=== PATIENT | female | born 1995 | race Caucasian/White ===

== ENCOUNTER 2020-10-12 06:20 | Inpatient (IN) | payer OTHER ==
[2020-10-12] MEDS ORDERED: ELECTROLYTE-148 SOLN 500 ML IV ONE (06:40)
[2020-10-12] MEDS ORDERED: CITRIC ACID/SODIUM CITRATE 30 ML UNIT-DOSE CUP PO ONE (06:45)
[2020-10-12 07:05] VITALS: BMI 26.5
[2020-10-12] MEDS ORDERED: ELECTROLYTE-148 SOLN 1,000 ML IV SCH (07:10)
[2020-10-12] MEDS ORDERED: morphine SULFATE/PF 0.5 MG/ML (2cc Syringe - QUVA) ONE (08:03)
[2020-10-12] MEDS ORDERED: OXYTOCIN 20 UNITS in 0.9% NS 20 UNIT/1,000 ML INFUS.BAG IV SCH (09:15)
[2020-10-12] MEDS ORDERED: METHYLERGONOVINE MALEATE 0.2 MG/1 ML AMP IM PRN (09:15)
[2020-10-12] MEDS ORDERED: morphine SULFATE/PF 0.5 MG/ML (2cc Syringe - QUVA) EP ONE (09:29)
[2020-10-12] MEDS ORDERED: ONDANSETRON 4 MG/2 ML VIAL IVPUSH PRN (09:29)
[2020-10-12 09:34] LABS: CORD BASE EXCESS -1.5 mmol/L (0-2); CORD HCO3 25.2 mmHg (20-29); CORD pH 7.321 (7.14-7.44)
[2020-10-12 09:38] LABS: CORD BASE EXCESS -1.2 mmol/L (0-2); CORD HCO3 27.5 mmHg (20-29); CORD PCO2 63.3 mmHg (30-78); CORD pH 7.256 (7.14-7.44)
[2020-10-12] MEDS ORDERED: OXYTOCIN 20 UNITS in 0.9% NS 20 UNIT/1,000 ML INFUS.BAG IV ONE (10:10)
[2020-10-12] MEDS: IBUPROFEN 800 MG/8 ML IJ IVPB PRN ×2 (14:00→23:45)
[2020-10-12] MEDS: CEFAZOLIN 1 GM/D5W 1 GM/50 ML BAG IVPB SCH (15:24)
[2020-10-13] MEDS: CEFAZOLIN 1 GM/D5W 1 GM/50 ML BAG IVPB SCH ×2 (00:01→08:04)
[2020-10-13] MEDS: ACETAMINOPHEN 325 MG TABLET (FP) PO PRN ×2 (04:12→08:05)
[2020-10-13] MEDS: oxyCODONE HCL 5 MG TABLET PO PRN ×4 (04:15→19:35)
[2020-10-13] MEDS: SENNOSIDES/DOCUSATE COMBO (SENNA PLUS) TABLET (UD) PO PRN ×2 (04:16→19:36)
[2020-10-13 07:57] LABS: BASO % 0.2 % (0-2.0); EOS % 0.2 % (0-4.5); HEMATOCRIT 30.2 % (32.4-45.2); HEMOGLOBIN 9.9 GM/dL (10.7-15.3); LYMPH % 15.4 % (8-40); MCH 29.9 pg (25.7-33.7); MCHC 32.7 g/dl (32.0-36.0); MEAN CELL VOLUME 91.2 fl (80-96); MEAN PLT VOLUME 8.9 fl (7.5-11.1); MONO % 8.4 % (3.8-10.2); NEUT % 75.8 % (42.8-82.8); PLATELET COUNT 212 K/MM3 (134-434); RBC 3.31 M/mm3 (3.60-5.2); WHITE BLOOD COUNT 14.3 K/mm3 (4.0-10.0)
[2020-10-13] MEDS: IBUPROFEN 600 MG TABLET (FP) PO PRN ×3 (08:05→19:36)
[2020-10-13] MEDS ORDERED: BISACODYL 10 MG SUPP.RECT RC PRN (09:15)
[2020-10-13] MEDS: ENOXAPARIN NA (PORCINE) 40 MG/0.4 ML DISP.SYRIN SQ SCH (10:47)
[2020-10-13] MEDS: PRENATAL VITAMINS W/ FOLIC ACID TABLET (FP) PO SCH (10:47)
[2020-10-13] MEDS: SIMETHICONE 80 MG TAB.CHEW (FP) PO PRN ×2 (15:19→19:36)
[2020-10-13] MEDS: FERROUS SO4 325 MG TABLET (FP) PO SCH (21:16)
[2020-10-14] MEDS: SIMETHICONE 80 MG TAB.CHEW (FP) PO PRN ×3 (00:42→22:04)
[2020-10-14] MEDS: IBUPROFEN 600 MG TABLET (FP) PO PRN ×4 (00:42→18:45)
[2020-10-14] MEDS: oxyCODONE HCL 5 MG TABLET PO PRN ×4 (00:42→18:45)
[2020-10-14] MEDS: PRENATAL VITAMINS W/ FOLIC ACID TABLET (FP) PO SCH (09:02)
[2020-10-14] MEDS: FERROUS SO4 325 MG TABLET (FP) PO SCH ×2 (09:02→22:04)
[2020-10-14] MEDS: ENOXAPARIN NA (PORCINE) 40 MG/0.4 ML DISP.SYRIN SQ SCH (09:05)
[2020-10-14] MEDS: SENNOSIDES/DOCUSATE COMBO (SENNA PLUS) TABLET (UD) PO PRN (22:04)
[2020-10-15] MEDS: IBUPROFEN 600 MG TABLET (FP) PO PRN ×2 (04:21→08:38)
[2020-10-15] MEDS: oxyCODONE HCL 5 MG TABLET PO PRN ×2 (04:22→08:37)
[2020-10-15] MEDS: SIMETHICONE 80 MG TAB.CHEW (FP) PO PRN (04:22)
[2020-10-15] MEDS: FERROUS SO4 325 MG TABLET (FP) PO SCH ×2 (08:38→09:09)
[2020-10-15] MEDS: PRENATAL VITAMINS W/ FOLIC ACID TABLET (FP) PO SCH ×2 (08:38→09:09)
[2020-10-15 08:41] LABS: BASO % 0.8 % (0-2.0); EOS % 2.9 % (0-4.5); HEMATOCRIT 33.5 % (32.4-45.2); HEMOGLOBIN 11.5 GM/dL (10.7-15.3); LYMPH % 23.9 % (8-40); MCH 31.3 pg (25.7-33.7); MCHC 34.4 g/dl (32.0-36.0); MEAN PLT VOLUME 8.1 fl (7.5-11.1); MONO % 6.5 % (3.8-10.2); NEUT % 65.9 % (42.8-82.8); PLATELET COUNT 277 K/MM3 (134-434); RBC 3.67 M/mm3 (3.60-5.2); RDW 13.9 % (11.6-15.6); WHITE BLOOD COUNT 9.5 K/mm3 (4.0-10.0)
[2020-10-15 09:08] VITALS: BP 129/60; PULSE 79; TEMP 98.7
[2020-10-15] MEDS: ENOXAPARIN NA (PORCINE) 40 MG/0.4 ML DISP.SYRIN SQ SCH (09:09)
== END 2020-10-15 11:55 | disposition home or self-care (01) | DRG 540 ==
LOC: JLDR 06:20 → J3W 11:00
PROVIDERS: ADMIT Obstetrics & Gynecology; ATTEND Obstetrics & Gynecology
PROC: 10D00Z1 Extraction of Products of Conception, Low, Open Approach (ICD-10-PCS; principal; 2020-10-12)
DX: O34.211 Maternal care for low transverse scar from previous cesarean delivery (principal); O99.824 Streptococcus B carrier state complicating childbirth; O99.02 Anemia complicating childbirth; D64.89 Other specified anemias; Z3A.39 39 weeks gestation of pregnancy; Z37.0 Single live birth; Z86.59 Personal history of other mental and behavioral disorders; Z86.19 Personal history of other infectious and parasitic diseases; Z87.09 Personal history of other diseases of the respiratory system
CPT/HCPCS: 36415; 36600; 82803; 85025; 88307-TC

== ENCOUNTER 2021-11-13 19:23 | Emergency (ER) | payer OTHER ==
[2021-11-13 19:33] VITALS: BP 104/72; PULSE 90; TEMP 98.1; BMI 18.3
[2021-11-13 20:59] LABS: BASO % 0.4 % (0-2.0); EOS % 2.2 % (0-4.5); HEMATOCRIT 36.6 % (32.4-45.2); HEMOGLOBIN 12.7 GM/dL (10.7-15.3); LYMPH % 21.7 % (8-40); MCH 31.2 pg (25.7-33.7); MCHC 34.6 g/dl (32.0-36.0); MEAN CELL VOLUME 90.2 fl (80-96); MEAN PLT VOLUME 7.8 fl (7.5-11.1); MONO % 4.9 % (3.8-10.2); NEUT % 70.8 % (42.8-82.8); PLATELET COUNT 320 10^3/uL (134-434); RBC 4.06 M/mm3 (3.60-5.2); RDW 12.1 % (11.6-15.6); WHITE BLOOD COUNT 13.9 K/mm3 (4.0-10.0)
[2021-11-13 21:06] LABS: CHLORIDE 104 mmol/L (98-107); SODIUM 136 mmol/L (136-145)
[2021-11-13 21:08] LABS: CALCIUM 9.3 mg/dL (8.5-10.1)
[2021-11-13 21:09] LABS: ALBUMIN 3.5 g/dl (3.4-5.0); ANION GAP 10 MMOL/L (8-16); BLOOD UREA NITROGEN 12.8 mg/dL (7-18); CO2 22 mmol/L (21-32); GLUCOSE,RANDOM 101 mg/dL (74-106)
[2021-11-13 21:10] LABS: EPI CELLS >36 /uL (0-25.1); HYALINE CASTS 12 /uL (0-3.1); URINE APPEARANCE CLEAR; URINE BACTERIA >9,000 /uL (0-1359); URINE BILIRUBIN NEGATIVE (NEGATIVE); URINE COLOR YELLOW; URINE GLUCOSE (UA) NEGATIVE (NEGATIVE); URINE KETONE NEGATIVE (NEGATIVE); URINE LEUK ESTERASE NEGATIVE (NEGATIVE); URINE NITRITE POSITIVE (NEGATIVE); URINE PROTEIN NEGATIVE (NEGATIVE); URINE RBC 3 /uL (0-23.9); URINE UROBILINOGEN 0.2 mg/dL (0.2-1.0); URINE WBC 44 /uL (0-25.8)
[2021-11-13 21:12] LABS: CREATININE 0.6 mg/dL (0.55-1.3); SGOT/AST 10 U/L (15-37); SGPT/ALT 19 U/L (13-61)
[2021-11-13 21:13] LABS: BILIRUBIN,TOTAL 0.1 mg/dL (0.2-1); TOT PROT 7.1 g/dl (6.4-8.2)
[2021-11-13 21:15] LABS: ALK PHOS 66 U/L (45-117)
[2021-11-13] MEDS ORDERED: CEPHALEXIN MONOHYDRATE 500 MG CAPSULE (UD) PO ONE (22:39)
[2021-11-13] MEDS ORDERED: CEPHALEXIN MONOHYDRATE 500 MG CAPSULE (UD) ONE (22:46)
== END 2021-11-13 23:13 | disposition home or self-care (01) ==
LOC: JER 19:23
DX: O26.851 Spotting complicating pregnancy, first trimester (principal); O30.001 Twin pregnancy, unspecified number of placenta and unspecified number of amniotic sacs, first trimester; O9A.311 Physical abuse complicating pregnancy, first trimester; Z3A.11 11 weeks gestation of pregnancy
CPT/HCPCS: 36415; 76801-TC; 80053; 81003; 84702; 85025; 87086; 87186; 99284-25

== ENCOUNTER 2022-01-14 14:22 | Emergency (ER) | payer OTHER ==
[2022-01-14 14:27] VITALS: BP 110/53; PULSE 83; TEMP 98.2; BMI 20.5
[2022-01-14 15:09] LABS: BASO % 0.6 % (0-2.0); EOS % 1.8 % (0-4.5); HEMATOCRIT 29.4 % (32.4-45.2); HEMOGLOBIN 10.3 GM/dL (10.7-15.3); LYMPH % 18.1 % (8-40); MCH 31.7 pg (25.7-33.7); MCHC 35.2 g/dl (32.0-36.0); MEAN PLT VOLUME 7.2 fl (7.5-11.1); MONO % 6.2 % (3.8-10.2); NEUT % 73.3 % (42.8-82.8); PLATELET COUNT 281 10^3/uL (134-434); RBC 3.26 M/mm3 (3.60-5.2); RDW 12.6 % (11.6-15.6); WHITE BLOOD COUNT 11.9 K/mm3 (4.0-10.0)
[2022-01-14 15:21] LABS: URINE APPEARANCE CLEAR; URINE BILIRUBIN NEGATIVE (NEGATIVE); URINE COLOR YELLOW; URINE GLUCOSE (UA) NEGATIVE (NEGATIVE); URINE KETONE NEGATIVE (NEGATIVE); URINE LEUK ESTERASE NEGATIVE (NEGATIVE); URINE NITRITE NEGATIVE (NEGATIVE); URINE PROTEIN NEGATIVE (NEGATIVE); URINE UROBILINOGEN 0.2 mg/dL (0.2-1.0)
[2022-01-14 15:30] LABS: CALCIUM 8.6 mg/dL (8.5-10.1)
[2022-01-14 15:31] LABS: BLOOD UREA NITROGEN 11.6 mg/dL (7-18)
[2022-01-14 15:34] LABS: CREATININE 0.4 mg/dL (0.55-1.3)
[2022-01-14 15:35] LABS: BILIRUBIN,TOTAL 0.3 mg/dL (0.2-1)
[2022-01-14 15:36] LABS: TOT PROT 6.6 g/dl (6.4-8.2)
== END 2022-01-14 16:35 | disposition home or self-care (01) ==
LOC: JER 14:22
DX: O26.892 Other specified pregnancy related conditions, second trimester (principal); R10.9 Unspecified abdominal pain; Z3A.18 18 weeks gestation of pregnancy
CPT/HCPCS: 36415; 76810-TC; 80053; 81003; 85025; 87086; 99284-25

== ENCOUNTER 2022-03-13 22:22 | Inpatient (IN) | payer OTHER ==
[2022-03-13] MEDS ORDERED: ceFAZolin SODIUM 1 GM VIAL ONE (23:12)
[2022-03-13] MEDS ORDERED: BETAMET ACET/BETAMET NA PH 30 MG/5 ML VIAL ONE (23:26)
[2022-03-13] MEDS ORDERED: CEFAZOLIN 2 GM in DEXTROSE 5%-WATER - 100 ML IVPB ONE (23:30)
[2022-03-13] MEDS ORDERED: ELECTROLYTE-148 SOLN 500 ML IV ONE (23:31)
[2022-03-13] MEDS ORDERED: BETAMET ACET/BETAMET NA PH 30 MG/5 ML VIAL IM ONE (23:33)
[2022-03-13] MEDS ORDERED: ceFAZolin 2 GRAM PREMIX BAG IVPB ONE (23:33)
[2022-03-13] MEDS ORDERED: ELECTROLYTE-148 SOLN 1,000 ML IV SCH (23:45)
[2022-03-13 23:57] LABS: HEMATOCRIT 32.4 % (32.4-45.2); HEMOGLOBIN 11.1 GM/dL (10.7-15.3); MCH 31.3 pg (25.7-33.7); MCHC 34.4 g/dl (32.0-36.0); MEAN PLT VOLUME 8.2 fl (7.5-11.1); PLATELET COUNT 272 10^3/uL (134-434); RBC 3.57 M/mm3 (3.60-5.2); RDW 13.4 % (11.6-15.6); WHITE BLOOD COUNT 11.3 K/mm3 (4.0-10.0)
[2022-03-14] MEDS ORDERED: MAGNESIUM SULFATE 20GM/500ML - 20 GM/500 ML INFUS.BAG ONE (00:12)
[2022-03-14] MEDS ORDERED: MAGNESIUM 4GM/H20 - 4 GM/100 ML IVPB IVPB ONE ×2 (00:12→00:30)
[2022-03-14 00:17] LABS: INR 1.02 (0.83-1.09); PROTHROMBIN TIME (PATIENT) 11.7 SEC (9.7-13.0)
[2022-03-14 00:18] LABS: CALCIUM 8.9 mg/dL (8.5-10.1)
[2022-03-14 00:19] LABS: ACTIVATED PTT 27.3 SECONDS (25.2-36.5)
[2022-03-14 00:20] LABS: BLOOD UREA NITROGEN 5.5 mg/dL (7-18)
[2022-03-14 00:22] LABS: CREATININE 0.5 mg/dL (0.55-1.3)
[2022-03-14] MEDS ORDERED: MAGNESIUM SULFATE 20GM/500ML - 20 GM/500 ML INFUS.BAG IVPB SCH (00:30)
[2022-03-14 00:50] VITALS: BP 116/57; PULSE 97; TEMP 98.9; BMI 23.8
[2022-03-14 01:04] LABS: ANISOCYTOSIS 1+; MACROCYTOSIS 0; OVALOCYTE 1+
[2022-03-14] MEDS ORDERED: CEFAZOLIN 2 GM in DEXTROSE 5%-WATER - 100 ML IVPB ONE (01:15)
[2022-03-14 01:16] LABS: HIV INTERPRETATION NEGATIVE (NEGATIVE)
== END 2022-03-14 01:40 | disposition short-term general hospital (02) | DRG 563 ==
LOC: JDEL 22:22 → JLDR 23:00
PROVIDERS: ADMIT Obstetrics & Gynecology; ATTEND Obstetrics & Gynecology
DX: O60.02 Preterm labor without delivery, second trimester (principal); O30.002 Twin pregnancy, unspecified number of placenta and unspecified number of amniotic sacs, second trimester; Z3A.26 26 weeks gestation of pregnancy; O34.211 Maternal care for low transverse scar from previous cesarean delivery; N85.8 Other specified noninflammatory disorders of uterus
CPT/HCPCS: 36415; 80048; 85025; 85610; 85730; 86780; 86850; 86900; 86901; 87389; 96372; C9803-CS; U0003; U0005

== ENCOUNTER 2022-05-19 03:45 | Inpatient (IN) | payer OTHER ==
[2022-05-19] MEDS ORDERED: ELECTROLYTE-148 SOLN 1,000 ML IV SCH ×2 (04:00→08:15)
[2022-05-19 04:47] LABS: HEMATOCRIT 30.3 % (32.4-45.2); HEMOGLOBIN 10.6 GM/dL (10.7-15.3); MCH 30.6 pg (25.7-33.7); MCHC 35.1 g/dl (32.0-36.0); MEAN CELL VOLUME 87.3 fl (80-96); MEAN PLT VOLUME 8.3 fl (7.5-11.1); PLATELET COUNT 260 10^3/uL (134-434); RBC 3.47 M/mm3 (3.60-5.2); RDW 14.5 % (11.6-15.6); WHITE BLOOD COUNT 9.7 K/mm3 (4.0-10.0)
[2022-05-19] MEDS ORDERED: TERBUTALINE SULFATE 1 MG/1 ML VIAL SQ ONE ×3 (05:00→08:11)
[2022-05-19 05:08] LABS: CALCIUM 8.6 mg/dL (8.5-10.1)
[2022-05-19 05:09] LABS: BLOOD UREA NITROGEN 7.2 mg/dL (7-18)
[2022-05-19 05:12] LABS: CREATININE 0.4 mg/dL (0.55-1.3)
[2022-05-19 05:29] LABS: INR 0.95 (0.83-1.09); PROTHROMBIN TIME (PATIENT) 10.9 SEC (9.7-13.0)
[2022-05-19 05:31] LABS: ACTIVATED PTT 26.9 SECONDS (25.2-36.5)
[2022-05-19 05:57] VITALS: BMI 26.4
[2022-05-19] MEDS ORDERED: CITRIC ACID/SODIUM CITRATE 30 ML UNIT-DOSE CUP PO ONE (08:08)
[2022-05-19] MEDS ORDERED: ceFAZolin SODIUM 1 GM VIAL ONE (08:12)
[2022-05-19] MEDS ORDERED: morphine SULFATE/PF 1 MG/2 ML (2cc Syringe - QUVA) ONE (08:12)
[2022-05-19] MEDS ORDERED: PHENYLEPHRINE HCL 10 MG/1 ML SINGLE DOSE VIAL ONE (08:13)
[2022-05-19] MEDS ORDERED: ePHEDrine SULFATE 50 MG/1 ML AMPULE ONE (08:15)
[2022-05-19] MEDS ORDERED: SODIUM CHLORIDE 0.9% P/F 10 ML VIAL IJ ONE ×2 (08:16→08:19)
[2022-05-19 09:39] LABS: ANISOCYTOSIS 0; MACROCYTOSIS 0; PLATELET ESTIMATE NORMAL
[2022-05-19] MEDS ORDERED: KETOROLAC TROMETHAMINE 30 MG/1 ML VIAL ONE (10:39)
[2022-05-19] MEDS ORDERED: OXYTOCIN 10 UNITS/ML VIAL ONE ×3 (10:39→11:02)
[2022-05-19] MEDS ORDERED: DEXAMETHASONE SOD PHOSPHATE 4 MG/1 ML VIAL ONE (10:39)
[2022-05-19] MEDS ORDERED: ONDANSETRON 4 MG/2 ML VIAL ONE ×3 (10:39→11:22)
[2022-05-19] MEDS ORDERED: MIDAZOLAM HCL 2 MG/2 ML SINGLE DOSE VIAL ONE (11:08)
[2022-05-19] MEDS ORDERED: morphine SULFATE/PF 1 MG/2 ML (2cc Syringe - QUVA) EP ONE (11:41)
[2022-05-19] MEDS ORDERED: ACETAMINOPHEN 325 MG TABLET (FP) PO PRN ×2 (11:41→11:43)
[2022-05-19] MEDS ORDERED: IBUPROFEN 600 MG TABLET (FP) PO PRN (11:43)
[2022-05-19] MEDS ORDERED: ONDANSETRON 4 MG/2 ML VIAL IVPUSH PRN (11:43)
[2022-05-19] MEDS ORDERED: SENNOSIDES/DOCUSATE COMBO (SENNA PLUS) TABLET (UD) PO PRN (11:43)
[2022-05-19] MEDS ORDERED: ONDANSETRON 4 MG/2 ML VIAL IVPB PRN (11:43)
[2022-05-19] MEDS ORDERED: ACETAMINOPHEN 1000 MG/100 ML BAG IVPB PRN (11:43)
[2022-05-19] MEDS: OXYTOCIN 20 UNITS in 0.9% NS 20 UNIT/1,000 ML INFUS.BAG IV SCH (14:35)
[2022-05-19] MEDS ORDERED: OXYTOCIN 20 UNITS in 0.9% NS 20 UNIT/1,000 ML INFUS.BAG IV ONE (14:48)
[2022-05-19] MEDS ORDERED: CEFAZOLIN 2 GM in DEXTROSE 5%-WATER - 50 ML IVPB SCH (18:00)
[2022-05-19] MEDS: IBUPROFEN 800 MG/8 ML IJ IVPB PRN (18:10)
[2022-05-19] MEDS: CEFAZOLIN SODIUM 2 GM in DEXTROSE 5%-WATER - 50 ML IVPB SCH (19:34)
[2022-05-20] MEDS: OXYTOCIN 20 UNITS in 0.9% NS 20 UNIT/1,000 ML INFUS.BAG IV SCH ×2 (02:41→19:25)
[2022-05-20] MEDS: CEFAZOLIN SODIUM 2 GM in DEXTROSE 5%-WATER - 50 ML IVPB SCH (02:41)
[2022-05-20] MEDS: SIMETHICONE 80 MG TAB.CHEW (FP) PO PRN ×4 (06:41→20:15)
[2022-05-20] MEDS: IBUPROFEN 800 MG/8 ML IJ IVPB PRN (06:41)
[2022-05-20 10:07] LABS: BASO % 0.3 % (0-2.0); EOS % 0.5 % (0-4.5); HEMATOCRIT 24.7 % (32.4-45.2); HEMOGLOBIN 8.3 GM/dL (10.7-15.3); LYMPH % 18.8 % (8-40); MCH 29.4 pg (25.7-33.7); MCHC 33.8 g/dl (32.0-36.0); MEAN PLT VOLUME 8.6 fl (7.5-11.1); MONO % 7.4 % (3.8-10.2); PLATELET COUNT 187 10^3/uL (134-434); RBC 2.83 M/mm3 (3.60-5.2); RDW 14.1 % (11.6-15.6); WHITE BLOOD COUNT 12.6 K/mm3 (4.0-10.0)
[2022-05-20] MEDS: oxyCODONE HCL 5 MG TABLET PO PRN ×2 (11:13→18:37)
[2022-05-20] MEDS ORDERED: BISACODYL 10 MG SUPP.RECT RC PRN (11:44)
[2022-05-20] MEDS: IBUPROFEN 600 MG TABLET (FP) PO PRN ×2 (15:36→20:15)
[2022-05-20] MEDS: ELECTROLYTE-148 SOLN 1,000 ML IV SCH ×2 (19:23→19:26)
[2022-05-21] MEDS: SIMETHICONE 80 MG TAB.CHEW (FP) PO PRN ×5 (00:36→22:11)
[2022-05-21] MEDS: oxyCODONE HCL 5 MG TABLET PO PRN (00:36)
[2022-05-21] MEDS: IBUPROFEN 600 MG TABLET (FP) PO PRN ×4 (06:10→22:12)
[2022-05-21] MEDS: ELECTROLYTE-148 SOLN 1,000 ML IV SCH (18:31)
[2022-05-22] MEDS: SIMETHICONE 80 MG TAB.CHEW (FP) PO PRN (02:06)
[2022-05-22] MEDS: IBUPROFEN 600 MG TABLET (FP) PO PRN (02:07)
[2022-05-22 09:30] VITALS: BP 107/73; PULSE 87; TEMP 98.8
[2022-05-22] MEDS ORDERED: IBUPROFEN 600 MG TABLET (FP) PO PRN (09:33)
[2022-05-22] MEDS ORDERED: ACETAMINOPHEN 500 MG TABLET (FP) PO PRN (09:35)
== END 2022-05-22 13:50 | disposition home or self-care (01) | DRG 540 ==
LOC: JDEL 03:45 → JLDR 05:00 → J3W 15:30
PROVIDERS: ADMIT Specialist; ATTEND Specialist
PROC: 10D00Z1 Extraction of Products of Conception, Low, Open Approach (ICD-10-PCS; principal; 2022-05-19)
PROC: 0UT70ZZ Resection of Bilateral Fallopian Tubes, Open Approach (ICD-10-PCS; 2022-05-19)
PROC: 0DNW0ZZ Release Peritoneum, Open Approach (ICD-10-PCS; 2022-05-19)
DX: O34.211 Maternal care for low transverse scar from previous cesarean delivery (principal); O30.033 Twin pregnancy, monochorionic/diamniotic, third trimester; O32.2XX2 Maternal care for transverse and oblique lie, fetus 2; Z37.2 Twins, both liveborn; Z30.2 Encounter for sterilization; O99.892 Other specified diseases and conditions complicating childbirth; N73.6 Female pelvic peritoneal adhesions (postinfective); Z3A.36 36 weeks gestation of pregnancy
CPT/HCPCS: 36415; 59025; 80048; 85025; 85610; 85730; 86780; 86850; 86900; 86901; 86922; 88302-TC; 88307-TC; C9803-CS; U0003; U0005

== ENCOUNTER 2023-01-29 09:45 | Emergency (ER) | payer OTHER ==
[2023-01-29 10:00] VITALS: BMI 20.9
[2023-01-29] MEDS ORDERED: SODIUM CHLORIDE 0.9% 1000 ML INFUS.BAG IV ONE (10:01)
[2023-01-29] MEDS ORDERED: ONDANSETRON 4 MG/2 ML VIAL IVPUSH ONE (10:01)
[2023-01-29] MEDS ORDERED: ONDANSETRON 4 MG/2 ML VIAL ONE (10:28)
[2023-01-29 11:09] LABS: BASO % 0.2 % (0-2.0); HEMOGLOBIN 14.2 GM/dL (10.7-15.3); LYMPH % 6.5 % (8-40); MCH 29.4 pg (25.7-33.7); MCHC 33.9 g/dl (32.0-36.0); MEAN CELL VOLUME 86.8 fl (80-96); MEAN PLT VOLUME 8.3 fl (7.5-11.1); MONO % 4.3 % (3.8-10.2); PLATELET COUNT 288 10^3/uL (134-434); RBC 4.84 M/mm3 (3.60-5.2); RDW 14.2 % (11.6-15.6); WHITE BLOOD COUNT 10.4 K/mm3 (4.0-10.0)
[2023-01-29 11:41] LABS: BLOOD UREA NITROGEN 15.8 mg/dL (7-18)
[2023-01-29 11:42] LABS: CALCIUM 9.3 mg/dL (8.5-10.1)
[2023-01-29 11:44] LABS: CREATININE 0.7 mg/dL (0.55-1.3)
[2023-01-29 12:16] VITALS: BP 104/54; PULSE 89; RESP 18; TEMP 99.2
== END 2023-01-29 12:19 | disposition home or self-care (01) ==
LOC: JER 09:45 → JERFT 09:45
PROC: 3E033GC Introduction of Other Therapeutic Substance into Peripheral Vein, Percutaneous Approach (ICD-10-PCS; principal; 2023-01-29)
DX: R11.10 Vomiting, unspecified (principal)
CPT/HCPCS: 36415; 80048; 84703; 85025; 99284-25

== ENCOUNTER 2023-06-10 15:27 | Emergency (ER) | payer OTHER ==
[2023-06-10 15:32] VITALS: BP 110/70; PULSE 82; RESP 16; TEMP 99.1; BMI 19.5
[2023-06-10] MEDS ORDERED: SODIUM CHLORIDE 1,000 ML IV STA (15:57)
[2023-06-10] MEDS ORDERED: METOCLOPRAMIDE HCL INJECTION 10 MG/2 ML VIAL IVPB ONE (15:57)
[2023-06-10] MEDS ORDERED: KETOROLAC TROMETHAMINE 30 MG/1 ML VIAL IVPUSH ONE (15:57)
[2023-06-10] MEDS ORDERED: KETOROLAC TROMETHAMINE 30 MG/1 ML VIAL ONE (16:18)
[2023-06-10] MEDS ORDERED: METOCLOPRAMIDE HCL INJECTION 10 MG/2 ML VIAL ONE (16:18)
[2023-06-10] MEDS ORDERED: ACETAMINOPHEN 1000 MG/100 ML BAG IVPB ONE (17:21)
[2023-06-10] MEDS ORDERED: DEXAMETHASONE SOD PHOSPHATE 10 MG/1 ML VIAL IVPUSH ONE (17:21)
[2023-06-10] MEDS ORDERED: ACETAMINOPHEN INJECTION 100 ML IVPB ONE (17:34)
[2023-06-10] MEDS ORDERED: DEXAMETHASONE SOD PHOSPHATE 10 MG/1 ML VIAL ONE (17:34)
== END 2023-06-10 18:18 | disposition home or self-care (01) ==
LOC: JER 15:27
PROC: 3E033NZ Introduction of Analgesics, Hypnotics, Sedatives into Peripheral Vein, Percutaneous Approach (ICD-10-PCS; principal; 2023-06-10)
PROC: 3E033GC Introduction of Other Therapeutic Substance into Peripheral Vein, Percutaneous Approach (ICD-10-PCS; 2023-06-10)
PROC: 3E033GC Introduction of Other Therapeutic Substance into Peripheral Vein, Percutaneous Approach (ICD-10-PCS; 2023-06-10)
PROC: 3E0333Z Introduction of Anti-inflammatory into Peripheral Vein, Percutaneous Approach (ICD-10-PCS; 2023-06-10)
PROC: 3E0337Z Introduction of Electrolytic and Water Balance Substance into Peripheral Vein, Percutaneous Approach (ICD-10-PCS; 2023-06-10)
DX: G44.209 Tension-type headache, unspecified, not intractable (principal)
CPT/HCPCS: 99284-25; J1100

== ENCOUNTER 2024-09-02 15:04 | Emergency (ER) | payer OTHER ==
[2024-09-02 15:47] VITALS: RESP 18; BMI 20.5
[2024-09-02] MEDS ORDERED: ACETAMINOPHEN 500 MG TABLET (FP) ONE (17:03)
[2024-09-02] MEDS: ACETAMINOPHEN 500 MG TABLET (FP) PO ONE (17:15)
[2024-09-02 17:25] LABS: EPI CELLS 11 /uL (0-25.1); HCG,QUALITATIVE URINE Negative; HYALINE CASTS 0 /uL (0-3.1); PH,URINE 7.5 (5.0-8.0); URINE APPEARANCE CLEAR; URINE BACTERIA >9,000 /uL (0-1359); URINE BILIRUBIN NEGATIVE (NEGATIVE); URINE COLOR YELLOW; URINE GLUCOSE (UA) NEGATIVE (NEGATIVE); URINE KETONE NEGATIVE (NEGATIVE); URINE LEUK ESTERASE NEGATIVE (NEGATIVE); URINE NITRITE POSITIVE (NEGATIVE); URINE PROTEIN TRACE (NEGATIVE); URINE RBC 37 /uL (0-23.9); URINE WBC 17 /uL (0-25.8)
[2024-09-02 17:51] VITALS: BP 94/52; PULSE 88; TEMP 99.2
== END 2024-09-02 17:58 | disposition home or self-care (01) ==
LOC: JERFT 15:04
DX: R30.0 Dysuria (principal); R35.0 Frequency of micturition; R10.9 Unspecified abdominal pain; R09.81 Nasal congestion; R50.9 Fever, unspecified; N12 Tubulo-interstitial nephritis, not specified as acute or chronic; J06.9 Acute upper respiratory infection, unspecified; Z20.822 Contact with and (suspected) exposure to COVID-19
CPT/HCPCS: 0241U-QW; 71046-TC-FY; 81003; 84703; 99284-25